=== PATIENT | female | born 1985 | race Caucasian/White ===

== ENCOUNTER 2023-09-14 09:00 | Emergency (ER) | payer OTHER, BC ==
[2023-09-14 12:15] VITALS: BP 132/86; PULSE 91; RESP 16; TEMP 98.3; BMI 36.6
== END 2023-09-14 10:20 | disposition home or self-care (01) ==
LOC: FER 09:00
DX: L03.313 Cellulitis of chest wall (principal)
CPT/HCPCS: 99283-25; 99284-25